=== PATIENT | female | born 1985 | race Caucasian/White ===

== ENCOUNTER 2020-12-07 15:01 | Outpatient (CLI) | payer OTHER ==
[~2020-12-07] VITALS: Ht 170.2 cm; Wt 140.0 kg
[2020-12-07 15:18] VITALS: BP 131/78
[2020-12-07 16:01] LABS: BASOPHILS % (AUTO) 0 % (0-1); EOSINOPHILS % (AUTO) 1 % (1-7); LYMPHOCYTES % (AUTO) 18 % (22-44); MD NO; MEAN CORPUSCULAR HEMOGLOBIN 26.9 pg (27.0-34.8); MEAN CORPUSCULAR HGB CONC 33.3 g/dL (32.4-35.8); MEAN PLATELET VOLUME 7.4 fL (7.4-10.4); MONOCYTES % (AUTO) 5 % (2-9); NEUTROPHILS % (AUTO) 76 % (42-75); PLATELET COUNT 255 x10^3/uL (130-400); RED BLOOD COUNT 4.74 x10^6/uL (3.82-5.3); RED CELL DISTRIBUTION WIDTH 13.4 % (9.6-15.2)
[2020-12-07 16:01] LABS: MICROSCOPIC NOT IND
[2020-12-07 16:15] LABS: CALCIUM 8.9 mg/dL (8.5-10.1); CHLORIDE 109 mmol/L (98-107)
[2020-12-07 16:20] LABS: ALANINE AMINOTRANSFERASE 14 U/L (12-78); ALBUMIN 2.7 g/dL (3.4-5.0); ALKALINE PHOSPHATASE 90 U/L (45-117); ANION GAP 12 mmol/L (5-15); BILIRUBIN,TOTAL 0.2 mg/dL (0.2-1.0); CREATININE 0.69 mg/dL (0.55-1.02); TOTAL PROTEIN 6.8 g/dL (6.4-8.2)
[2020-12-07 16:21] LABS: BILIRUBIN, DIRECT < 0.1 mg/dL (0.1-0.2)
[2020-12-07] MEDS ORDERED: PREN1TAB60 PO (16:48)
== END 2020-12-07 17:01 | disposition home or self-care (01) ==
LOC: LDOP 15:01
PROVIDERS: ATTEND Obstetrics & Gynecology
DX: O26.892 Other specified pregnancy related conditions, second trimester (principal); Z3A.23 23 weeks gestation of pregnancy
CPT/HCPCS: 36415; 59025; 80053; 81003; 82248; 82570; 84156; 84550; 85025; 99211; G0463

== ENCOUNTER 2021-03-13 10:52 | Inpatient (IN) | payer OTHER ==
[~2021-03-13] VITALS: Ht 167.6 cm; Wt 143.2 kg
[~2021-03-13 10:52] MED LIST: PREN1TAB60 PO
[2021-03-14] MEDS ORDERED: LIDOCAINE 1%, 20ML ONE (21:39)
[2021-03-14] MEDS ORDERED: MISOPROSTOL 200 MCG TABLET ONE (21:40)
[2021-03-14] MEDS ORDERED: OXYTOCIN 30U/ 0.9% NaCL 500ML 500 ML ONE (21:40)
[2021-03-14] MEDS ORDERED: OXYTOCIN 30U/ 0.9% NaCL 500ML 500 ML IV PRN (22:00)
[2021-03-14] MEDS ORDERED: FENTANYL PF 100 MCG/2ML IV PRN (22:00)
[2021-03-14] MEDS ORDERED: FENTANYL PF 100 MCG/2ML IVPush PRN (22:00)
[2021-03-14] MEDS ORDERED: TERBUTALINE 1 MG/ML, 1ML SQ PRN (22:00)
[2021-03-14] MEDS ORDERED: OXYTOCIN 30U/ 0.9% NaCL 500ML 500 ML IV ONE (22:00)
[2021-03-14] MEDS ORDERED: TERBUTALINE 1 MG/ML, 1ML IVPush PRN (22:00)
[2021-03-14] MEDS ORDERED: CALCIUM CARBONATE 500 MG TAB.CHEW PO PRN (22:00)
[2021-03-14] MEDS ORDERED: ONDANSETRON 2MG/ML, 2ML IVPush PRN (22:00)
[2021-03-14] MEDS ORDERED: D5%-LACTATED RINGERS 1,000 ML IV SCH (22:00)
[2021-03-14 22:12] LABS: BASOPHILS % (AUTO) 1 % (0-1); EOSINOPHILS % (AUTO) 0 % (1-7); LYMPHOCYTES % (AUTO) 24 % (22-44); MD NO; MEAN CORPUSCULAR HEMOGLOBIN 26.2 pg (27.0-34.8); MEAN CORPUSCULAR HGB CONC 33.6 g/dL (32.4-35.8); MEAN PLATELET VOLUME 7.9 fL (7.4-10.4); MONOCYTES % (AUTO) 7 % (2-9); NEUTROPHILS % (AUTO) 68 % (42-75); PLATELET COUNT 216 x10^3/uL (130-400); RED BLOOD COUNT 4.85 x10^6/uL (3.82-5.3); RED CELL DISTRIBUTION WIDTH 14.5 % (9.6-15.2)
[2021-03-15] MEDS ORDERED: FENTANYL/BUPIV./NS/PF 250 ML EPIDCONT ONE (05:35)
[2021-03-15] MEDS ORDERED: EPHEDRINE 50 MG/ML, 1ML ONE (06:07)
[2021-03-15] MEDS: EPHEDRINE 50 MG/ML, 1ML IVPush PRN ×2 (06:07→06:50)
[2021-03-15] MEDS ORDERED: LACTATED RINGERS 1,000 ML IV SCH (06:30)
[2021-03-15] MEDS ORDERED: NALOXONE 0.4 MG/ML, 1ML IVPush PRN (06:30)
[2021-03-15] MEDS ORDERED: FENTANYL/BUPIV./NS/PF 250 ML EPIDCONT SCH (06:30)
[2021-03-15] MEDS ORDERED: LACTATED RINGERS 1,000 ML IVBOLUS PRN (06:30)
[2021-03-15] MEDS: LACTATED RINGERS 1,000 ML IV SCH ×2 (07:10→11:45)
[2021-03-15 07:39] LABS: ALANINE AMINOTRANSFERASE 15 U/L (12-78); ALBUMIN 2.6 g/dL (3.4-5.0); ANION GAP 7 mmol/L (5-15); CALCIUM 8.9 mg/dL (8.5-10.1); CHLORIDE 110 mmol/L (98-107); CREATININE 0.71 mg/dL (0.55-1.02)
[2021-03-15 07:41] LABS: ALKALINE PHOSPHATASE 102 U/L (45-117); BILIRUBIN,TOTAL 0.2 mg/dL (0.2-1.0); TOTAL PROTEIN 6.3 g/dL (6.4-8.2)
[2021-03-15] MEDS ORDERED: LABETALOL 5MG/ML, 20ML ONE (08:16)
[2021-03-15] MEDS ORDERED: LACTATED RINGERS 1,000 ML INTUTE PRN (08:30)
[2021-03-15] MEDS ORDERED: LABETALOL 5MG/ML, 20ML IVPush ONE (08:30)
[2021-03-15] MEDS ORDERED: LACTATED RINGERS 1,000 ML INTUTE SCH (08:30)
[2021-03-15] MEDS ORDERED: ACETAMINOPHEN 325 MG TABLET PO PRN (18:00)
[2021-03-15] MEDS ORDERED: ONDANSETRON 2MG/ML, 2ML IV PRN (18:00)
[2021-03-15] MEDS ORDERED: RHOGAM FROM BLOOD BANK 1 NOTE EA IM/IV ONE (18:00)
[2021-03-15] MEDS ORDERED: DOCUSATE 100 MG CAPSULE PO PRN (18:00)
[2021-03-15] MEDS ORDERED: BISACODYL 10 MG SUPP PR PRN (18:00)
[2021-03-15] MEDS ORDERED: HYDROcodone/APAP 5/325 TABLET PO PRN (18:00)
[2021-03-15] MEDS ORDERED: MISOPROSTOL 200 MCG TABLET PR PRN (18:00)
[2021-03-15] MEDS ORDERED: OXYTOCIN 30U/ 0.9% NaCL 500ML 500 ML IV SCH (18:00)
[2021-03-15] MEDS: IBUPROFEN 800 MG TABLET PO PRN (19:15)
[2021-03-15 20:30] LABS: BASOPHILS % (AUTO) 0 % (0-1); EOSINOPHILS % (AUTO) 0 % (1-7); LYMPHOCYTES % (AUTO) 8 % (22-44); MEAN CORPUSCULAR HEMOGLOBIN 26.2 pg (27.0-34.8); MEAN CORPUSCULAR HGB CONC 33.4 g/dL (32.4-35.8); MEAN PLATELET VOLUME 8.2 fL (7.4-10.4); MONOCYTES % (AUTO) 6 % (2-9); NEUTROPHILS % (AUTO) 86 % (42-75); PLATELET COUNT 208 x10^3/uL (130-400); RED BLOOD COUNT 4.32 x10^6/uL (3.82-5.3); RED CELL DISTRIBUTION WIDTH 14.7 % (9.6-15.2)
[2021-03-15 20:55] LABS: MD NO
[2021-03-15] MEDS: DOCUSATE 100 MG CAPSULE PO SCH (21:00)
[2021-03-15 21:40] VITALS: BP 135/76
[2021-03-16 00:42] VITALS: BP 129/81
[2021-03-16 01:45] LABS: BASOPHILS % (AUTO) 0 % (0-1); EOSINOPHILS % (AUTO) 0 % (1-7); LYMPHOCYTES % (AUTO) 12 % (22-44); MEAN CORPUSCULAR HEMOGLOBIN 26.6 pg (27.0-34.8); MEAN CORPUSCULAR HGB CONC 33.7 g/dL (32.4-35.8); MEAN PLATELET VOLUME 8.1 fL (7.4-10.4); MONOCYTES % (AUTO) 7 % (2-9); NEUTROPHILS % (AUTO) 80 % (42-75); PLATELET COUNT 181 x10^3/uL (130-400); RED BLOOD COUNT 3.78 x10^6/uL (3.82-5.3); RED CELL DISTRIBUTION WIDTH 14.7 % (9.6-15.2)
[2021-03-16 01:50] LABS: MD NO
[2021-03-16 04:00] VITALS: BP 131/75
[2021-03-16] MEDS ORDERED: IBUPROFEN 600 MG TABLET ONE ×2 (05:40→22:59)
[2021-03-16] MEDS: IBUPROFEN 800 MG TABLET PO PRN ×3 (05:45→23:07)
[2021-03-16] MEDS: OXYcodone/APAP 5/325MG TABLET PO PRN ×5 (05:46→23:07)
[2021-03-16 08:00] VITALS: BP_SYST 109; BP_SYST 123; BP_DIAS 61; BP_DIAS 77
[2021-03-16] MEDS: PRENATAL VIT/IRON/FA 1 EACH TABLET PO SCH (10:23)
[2021-03-16] MEDS: DOCUSATE 100 MG CAPSULE PO SCH ×2 (10:24→23:06)
[2021-03-16 12:30] VITALS: BP_SYST 109; BP_SYST 121; BP_DIAS 66; BP_DIAS 71
[2021-03-16 16:30] VITALS: BP 123/72
[2021-03-16 20:00] VITALS: BP 110/73
[2021-03-17] MEDS ORDERED: IBUPROFEN 600 MG TABLET ONE (05:54)
[2021-03-17] MEDS: IBUPROFEN 800 MG TABLET PO PRN (05:56)
[2021-03-17] MEDS: OXYcodone/APAP 5/325MG TABLET PO PRN ×2 (05:57→12:23)
[2021-03-17] MEDS ORDERED: OXYC-302 PO ×3 (06:09→16:10)
[2021-03-17 07:00] VITALS: BP 119/79
[2021-03-17] MEDS: DOCUSATE 100 MG CAPSULE PO SCH (08:47)
[2021-03-17] MEDS: PRENATAL VIT/IRON/FA 1 EACH TABLET PO SCH (08:47)
[2021-03-17] MEDS ORDERED: IBUPROFEN 600 MG TABLET PO PRN ×2 (12:30)
[2021-03-17] MEDS ORDERED: DOCU-131 PO (12:36)
[2021-03-17] MEDS ORDERED: IBUP-1222 PO (12:40)
[2021-03-17] MEDS ORDERED: OXYC1TAB14 PO (16:15)
== END 2021-03-17 13:20 | disposition home or self-care (01) | DRG 768 ==
LOC: LDIP 03-14 21:10 → 2NW 03-15 21:23
PROVIDERS: ADMIT Obstetrics & Gynecology; ATTEND Obstetrics & Gynecology
PROC: 10D07Z6 Extraction of Products of Conception, Vacuum, Via Natural or Artificial Opening (ICD-10-PCS; principal; 2021-03-15)
PROC: 0DQR0ZZ Repair Anal Sphincter, Open Approach (ICD-10-PCS; 2021-03-15)
DX: O24.424 Gestational diabetes mellitus in childbirth, insulin controlled (principal); Z37.0 Single live birth; O70.20 Third degree perineal laceration during delivery, unspecified; O16.4 Unspecified maternal hypertension, complicating childbirth; O34.13 Maternal care for benign tumor of corpus uteri, third trimester; D25.9 Leiomyoma of uterus, unspecified; E66.01 Morbid (severe) obesity due to excess calories; O76 Abnormality in fetal heart rate and rhythm complicating labor and delivery; Z20.822 Contact with and (suspected) exposure to COVID-19; O99.214 Obesity complicating childbirth; Z3A.37 37 weeks gestation of pregnancy; Z79.4 Long term (current) use of insulin
CPT/HCPCS: 36415; 80053; 82570; 82962; 84156; 85025; 86592; 86850; 86900; 87635; G0378; J3010; J2590; J7120